=== PATIENT | male | born 2005 | race Caucasian/White ===

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

== ENCOUNTER 2023-09-22 20:40 | Emergency (ER) | payer BC, OTHER ==
[2023-09-22] MEDS ORDERED: Lidocaine 1% PF 5 ML VIAL ONE (21:01)
== END 2023-09-22 21:20 | disposition home or self-care (01) ==
LOC: CSHERS 20:40
DX: S61.411A Laceration without foreign body of right hand, initial encounter (principal); F17.200 Nicotine dependence, unspecified, uncomplicated; W31.1XXA Contact with metalworking machines, initial encounter
CPT/HCPCS: 12001; 99282